=== PATIENT | female | born 2000 | race Caucasian/White ===

== ENCOUNTER 2018-07-02 13:11 | Emergency (ER) | payer OTHER ==
[2018-07-02] MEDS ORDERED: NS 1,000 ML IV ONE (14:15)
--- NOTE | 2018-07-02 14:15 | EDPHY ---
H & P Stated Complaint: RLQ ABD PAIN/ DIARRHEA Time Seen by Provider: 07/02/18 14:15 HPI/ROS: CHIEF COMPLAINT: Abdominal pain, loose stool HISTORY OF PRESENT ILLNESS: The patient presents to the ED for evaluation of sharp right lower abdominal pain that began earlier today. The patient does report some associated loose stool. She denies nausea, vomiting or diarrhea. The patient did have some vague sternal discomfort yesterday which resolved. The patient denies any hematuria, urinary frequency or dysuria. The patient denies significant past medical history. The patient denies melena. She has an IUD. She does not recall her last regular menstrual cycle. She has no prior history of ovarian pathology. REVIEW OF SYSTEMS: A comprehensive 10 point review of systems is otherwise negative aside from elements mentioned in the history of present illness. Source: Patient - Personal History LMP (Females 10-55): IUD In Place Current Tetanus Diphtheria and Acellular Pertussis (TDAP): Yes - Medical/Surgical History Hx Asthma: No Hx Chronic Respiratory Disease: No Hx Diabetes: No Hx Cardiac Disease: No Hx Renal Disease: No Hx Cirrhosis: No Hx Alcoholism: No Hx HIV/AIDS: No Hx Splenectomy or Spleen Trauma: No Other PMH: DENIES - Social History Smoking Status: Never smoked - Physical Exam Exam: General Appearance: Alert, no distress Eyes: Pupils equal and round no pallor or injection ENT, Mouth: Mucous membranes moist Respiratory: There are no retractions, lungs are clear to auscultation Cardiovascular: Regular rate and rhythm Gastrointestinal: Tenderness to deep palpation noted in the right lower quadrant, no peritoneal signs Neurological: 5/5 strength noted all 4 extremities Skin: Warm and dry, no rashes Musculoskeletal: Neck is supple nontender Extremities: symmetrical, full range of motion Psychiatric: Patient is oriented X 3, there is no agitation Constitutional: Initial Vital Signs Temperature (C) 36.6 C 07/02/18 13:26 Heart Rate 76 07/02/18 13:26 Respiratory Rate 17 07/02/18 13:26 Blood Pressure 133/76 H 07/02/18 13:26 O2 Sat (%) 98 07/02/18 13:26 O2 Delivery Mode Room Air Allergies/Adverse Reactions: No Known Allergies Allergy (Unverified 07/02/18 13:26) Home Medications: Medication Instructions Recorded NK [No Known Home Meds] 07/02/18 Medical Decision Making - Diagnostics Imaging Results: Imaging Impressions Pelvic/Renal Ultrasound 07/02/18 14:46 Impression: Complex lesion in the right ovary measuring 1.9 cm. With the heterogeneous increased echogenicity, complex cyst is less likely and solid mass can be considered. Recommend follow up pelvic ultrasound in 6-8 weeks and gynecology consultation. IUD is well positioned in the endometrial cavity. Results called and discussed with Gato Simon on 07/02/2018 at 16:09 hours. ED Course/Re-evaluation: The patient presents to the ED after she experienced an episode of sharp right lower quadrant pain earlier today which has been slowly improving. The patient did have some loose stools. The patient denies significant history of abdominal pathology. The patient was initially seen at urgent care and sent to the ED for further evaluation. In the ED the patient was noted to have minimal right lower quadrant tenderness. The patient's test is negative. The patient's CBC, metabolic panel, liver function tests and lipase are unremarkable. Patient was taken for pelvic ultrasound which demonstrates a hyperechoic right ovary either consistent with a small hemorrhagic cyst verses a dermoid cyst. There is no evidence of torsion or free fluid. Re-evaluated the patient at 4:15 p.m.. She is feeling better. This point time I feel she can be discharged home with instructions to take ibuprofen. The patient has been instructed to follow up with our on-call education assistant for repeat ultrasound in 6-8 weeks. The patient is instructed to return to the ED for severe pain, markedly worsening symptoms or other concerns. Differential Diagnosis: Differential diagnosis considered includes ovarian torsion, ovarian cyst, ruptured ectopic , appendicitis - Data Points Laboratory Results: Laboratory Results 07/02/18 14:21 07/02/18 14:21 07/02/18 07/02/18 07/02/18 15:26 14:21 14:21 WBC RBC Hgb Hct MCV MCH MCHC RDW Plt Count MPV Neut % (Auto) Lymph % (Auto) [place] % (Auto) Eos % (Auto) Baso % (Auto) Nucleat RBC Rel Count Absolute Neuts (auto) Absolute Lymphs (auto) Absolute Monos (auto) Absolute Eos (auto) Absolute Basos (auto) Absolute Nucleated RBC Immature Gran % Immature Gran # Sodium 136 mEq/L mEq/L (135-145) Potassium 4.1 mEq/L mEq/L (3.5-5.2) Chloride 101 mEq/L mEq/L (97-110) Carbon Dioxide 24 mEq/l mEq/l (22-31) Anion Gap 11 mEq/L mEq/L (6-14) BUN 15 mg/dL mg/dL (7-23) Creatinine 0.8 mg/dL mg/dL (0.6-1.0) Estimated GFR > 60 Glucose 87 mg/dL mg/dL (70-100) Calcium 10.5 mg/dL H mg/dL (8.5-10.4) Total Bilirubin 0.3 mg/dL mg/dL (0.1-1.4) Conjugated Bilirubin 0.1 mg/dL mg/dL (0.0-0.5) Unconjugated Bilirubin 0.2 mg/dL mg/dL (0.0-1.1) AST 33 IU/L IU/L (14-46) ALT 28 IU/L IU/L (9-52) Alkaline Phosphatase 92 IU/L IU/L (38-126) Total Protein 8.3 g/dL H g/dL (6.3-8.2) Albumin 5.0 g/dL g/dL (3.5-5.0) Lipase 116 IU/L IU/L (23-300) Beta HCG, Qual NEGATIVE Urine Color PALE YELLOW Urine Appearance CLEAR Urine pH 7.0 (5.0-7.5) Ur Specific [place] 1.005 (1.002-1.030) Urine Protein NEGATIVE (NEGATIVE) Urine Ketones NEGATIVE (NEGATIVE) Urine Blood NEGATIVE (NEGATIVE) Urine Nitrate NEGATIVE (NEGATIVE) Urine Bilirubin NEGATIVE (NEGATIVE) Urine Urobilinogen NEGATIVE EU EU (0.2-1.0) Ur Leukocyte Esterase NEGATIVE (NEGATIVE) Urine Glucose NEGATIVE (NEGATIVE) 07/02/18 14:21 WBC 8.21 10^3/uL 10^3/uL (3.80-9.50) RBC 5.12 10^6/uL 10^6/uL (4.18-5.33) Hgb 14.6 g/dL g/dL (12.6-16.3) Hct 44.2 % % (38.0-47.0) MCV 86.3 fL fL (81.5-99.8) MCH 28.5 pg pg (27.9-34.1) MCHC 33.0 g/dL g/dL (32.4-36.7) RDW 12.8 % % (11.5-15.2) Plt Count 307 10^3/uL 10^3/uL (150-400) MPV 8.8 fL fL (8.7-11.7) Neut % (Auto) 52.7 % % (39.3-74.2) Lymph % (Auto) 34.6 % % (15.0-45.0) [place] % (Auto) 7.1 % % (4.5-13.0) Eos % (Auto) 5.0 % % (0.6-7.6) Baso % (Auto) 0.4 % % (0.3-1.7) Nucleat RBC Rel Count 0.0 % % (0.0-0.2) Absolute Neuts (auto) 4.33 10^3/uL 10^3/uL (1.70-6.50) Absolute Lymphs (auto) 2.84 10^3/uL 10^3/uL (1.00-3.00) Absolute Monos (auto) 0.58 10^3/uL 10^3/uL (0.30-0.80) Absolute Eos (auto) 0.41 10^3/uL H 10^3/uL (0.03-0.40) Absolute Basos (auto) 0.03 10^3/uL 10^3/uL (0.02-0.10) Absolute Nucleated RBC 0.00 10^3/uL 10^3/uL (0-0.01) Immature Gran % 0.2 % % (0.0-1.1) Immature Gran # 0.02 10^3/uL 10^3/uL (0.00-0.10) Sodium Potassium Chloride Carbon Dioxide Anion Gap BUN Creatinine Estimated GFR Glucose Calcium Total Bilirubin Conjugated Bilirubin Unconjugated Bilirubin AST ALT Alkaline Phosphatase Total Protein Albumin Lipase Beta HCG, Qual Urine Color Urine Appearance Urine pH Ur Specific [place] Urine Protein Urine Ketones Urine Blood Urine Nitrate Urine Bilirubin Urine Urobilinogen Ur Leukocyte Esterase Urine Glucose Medications Given: Discontinued Medications Sodium Chloride (Ns) 1,000 mls @ 0 mls/hr IV EDNOW ONE; Wide Open PRN Reason: Protocol Stop: 07/02/18 14:16 Last Admin: 07/02/18 14:22 Dose: 1,000 mls Departure - Departure Disposition: Home, Routine, Self-Care Clinical Impression: Ovarian cyst, Abdominal pain Condition: Good Instructions: Acute Abdominal Pain (ED) Additional Instructions: 1. Sometimes we are unable to diagnose an obvious cause of abdominal pain in the Emergency Department. Based upon our evaluation today, I believe your pain is secondary to a ruptured ovarian cyst. Because more serious conditions can be difficult to diagnose early in the course of their presentation, we ask that you return to the Emergency Department in 8-12 hours for a recheck if you are still having pain. This is necessary to exclude the development of a more serious condition such as appendicitis or other intra-abdominal emergency. In the event your pain markedly increases before that time or you develop intractable vomiting or fever return to the Emergency Department immediately. 2. Take Ibuprofen or Motrin 600 mg by mouth three times a day. 3. Follow up with a education assistant you have been referred to for a repeat ultrasound in 6-8 weeks. Referrals: Juani Blevins MD [Medical Doctor] - As per Instructions
[2018-07-02 14:33] LABS: PLATELET COUNT 307 10^3/uL (150-400)
[2018-07-02 16:31] VITALS: BP 123/79
== END 2018-07-02 16:30 | disposition home or self-care (01) ==
DX: N83.201 Unspecified ovarian cyst, right side (principal); R10.9 Unspecified abdominal pain; E86.9 Volume depletion, unspecified